=== PATIENT | female | born 1950 | race Caucasian/White ===

== ENCOUNTER → 2018-05-11 | Outpatient (CLI) | payer OTHER ==
[~2018-05-11] MED LIST: ACCUNEB SO1.25 MG/1 INH; ACTOS15 MG PO; ADULT LOW DOSE81 MG PO; ATACAND HCT 321 EACH PO; BENICAR HCT 201 EACH PO; CENTRUM SILVER1 EAC1 PO; ENABLEX15 MG PO; EYE DROPS15 M1 OPHTHALMIC; HYCET 7.5 MG-3473 ML PO; LEVOTHROID125 MCG PO; LIPITOR40 MG PO; MULTIVITAMINS1 EAC7 PO; NORVASC 5 MG TAB5 MG PO; OCUVITE TABLET1 EAC1 PO; OSTEOBIFLEX PO; SPIRONOLACTONE50 MG PO
[2018-05-11 09:34] LABS: CREATININE 1.2 mg/dL (0.6-1.0)
== END ==
LOC: EDSTATUS 08:47 → CAT 08:52
PROVIDERS: Surgery
DX: N28.1 Cyst of kidney, acquired (principal); K57.30 Diverticulosis of large intestine without perforation or abscess without bleeding; K76.89 Other specified diseases of liver; R18.8 Other ascites; Z90.49 Acquired absence of other specified parts of digestive tract; Z90.710 Acquired absence of both cervix and uterus

== ENCOUNTER → 2019-09-05 | Outpatient (CLI) | payer OTHER | LOC: SJCVC 14:53 | PROVIDERS: ATTEND Internal Medicine | DX: I49.9 Cardiac arrhythmia, unspecified (principal); I25.10 Atherosclerotic heart disease of native coronary artery without angina pectoris; E78.00 Pure hypercholesterolemia, unspecified; I10 Essential (primary) hypertension ==

== ENCOUNTER → 2020-01-31 | Outpatient (CLI) | payer OTHER | LOC: SJCVCIMAG 09:07 | PROVIDERS: ATTEND Internal Medicine Cardiovascular Disease | DX: I25.10 Atherosclerotic heart disease of native coronary artery without angina pectoris (principal); I49.3 Ventricular premature depolarization; E78.5 Hyperlipidemia, unspecified; I10 Essential (primary) hypertension; Z79.899 Other long term (current) drug therapy ==

== ENCOUNTER → 2020-11-05 | Outpatient (CLI) | payer OTHER | LOC: SJCVC 12:53 | PROVIDERS: ATTEND Internal Medicine Cardiovascular Disease | DX: I25.10 Atherosclerotic heart disease of native coronary artery without angina pectoris (principal); E78.5 Hyperlipidemia, unspecified; I89.0 Lymphedema, not elsewhere classified; E11.22 Type 2 diabetes mellitus with diabetic chronic kidney disease; I12.9 Hypertensive chronic kidney disease with stage 1 through stage 4 chronic kidney disease, or unspecified chronic kidney disease; N18.9 Chronic kidney disease, unspecified; E78.00 Pure hypercholesterolemia, unspecified; E66.01 Morbid (severe) obesity due to excess calories; G47.33 Obstructive sleep apnea (adult) (pediatric); Z90.710 Acquired absence of both cervix and uterus; Z79.82 Long term (current) use of aspirin; Z79.899 Other long term (current) drug therapy; Z82.49 Family history of ischemic heart disease and other diseases of the circulatory system ==

== ENCOUNTER 2021-01-10 11:23 | Emergency (ER) | payer OTHER ==
[~2021-01-10] VITALS: Ht 157.5 cm; Wt 90.7 kg
[2021-01-10 11:23] VITALS: BP 138/88
[~2021-01-10 11:23] MED LIST changes: -LEVOTHROID125 MCG PO; +LEVOTHYROXINE150 MC1 PO
[2021-01-10] MEDS ORDERED: PREDNISONE50 MG PO (12:31)
[2021-01-10] MEDS ORDERED: NORCO5 PO (12:31)
[2021-01-16] MEDS ORDERED: ALPRAZOLAM XR3 MG PO (12:06)
[2021-01-16] MEDS ORDERED: GABAPENTIN100 MG PO (12:07)
[2021-01-16] MEDS ORDERED: PRAVACHOL40 MG PO (12:07)
[2021-01-16] MEDS ORDERED: PLAVIX 75 MG TA75 MG PO (15:51)
== END 2021-01-10 12:32 | disposition home or self-care (01) ==
LOC: ER 11:23
DX: M25.561 Pain in right knee (principal); J45.909 Unspecified asthma, uncomplicated; I10 Essential (primary) hypertension; E03.9 Hypothyroidism, unspecified; Z90.49 Acquired absence of other specified parts of digestive tract; Z90.89 Acquired absence of other organs; Z88.1 Allergy status to other antibiotic agents; Z90.710 Acquired absence of both cervix and uterus; Z79.2 Long term (current) use of antibiotics; Z79.82 Long term (current) use of aspirin; Z79.899 Other long term (current) drug therapy

== ENCOUNTER → 2021-01-15 | Outpatient (CLI) | payer OTHER ==
[~2021-01-15] MED LIST changes: +ALPRAZOLAM XR3 MG PO; +GABAPENTIN100 MG PO; +NORCO5 PO; +PLAVIX 75 MG TA75 MG PO; +PRAVACHOL40 MG PO; +PREDNISONE50 MG PO
== END ==
LOC: SJCVCIMAG 11:15
PROVIDERS: ATTEND Nuclear Medicine Nuclear Cardiology
DX: M79.89 Other specified soft tissue disorders (principal); M79.605 Pain in left leg; M79.604 Pain in right leg; I87.2 Venous insufficiency (chronic) (peripheral); I25.10 Atherosclerotic heart disease of native coronary artery without angina pectoris; E11.22 Type 2 diabetes mellitus with diabetic chronic kidney disease; I12.9 Hypertensive chronic kidney disease with stage 1 through stage 4 chronic kidney disease, or unspecified chronic kidney disease; N18.9 Chronic kidney disease, unspecified; G47.33 Obstructive sleep apnea (adult) (pediatric); E66.01 Morbid (severe) obesity due to excess calories; Z90.710 Acquired absence of both cervix and uterus; Z98.890 Other specified postprocedural states; Z79.82 Long term (current) use of aspirin; Z79.899 Other long term (current) drug therapy; Z82.49 Family history of ischemic heart disease and other diseases of the circulatory system

== ENCOUNTER → 2021-01-16 | Outpatient (CLI) | payer OTHER ==
[~2021-01-16] VITALS: Ht 157.5 cm; Wt 106.6 kg
[2021-01-16 11:31] VITALS: BP 148/86
[2021-01-16 12:05] LABS: HEMATOCRIT 39.7 % (37.0-47.0); HEMOGLOBIN 12.7 gm/dL (12.0-15.0); MCH 25.6 pg (26.0-34.0); MCHC 32.1 g/dL (28.0-37.0); MCV 79.7 fL (80.0-100.0); RBC 4.98 mil/uL (4.20-5.00); RDW 15.1 % (10.5-14.5); WBC 8.3 thou/uL (4.0-11.0)
[2021-01-16 12:12] LABS: CALCIUM 8.7 mg/dL (8.5-10.1); CREATININE 1.6 mg/dL (0.6-1.0)
== END | disposition home or self-care (01) ==
LOC: CATH 06:23
PROVIDERS: ATTEND Nuclear Medicine Nuclear Cardiology
DX: I87.1 Compression of vein (principal); I87.323 Chronic venous hypertension (idiopathic) with inflammation of bilateral lower extremity; R22.43 Localized swelling, mass and lump, lower limb, bilateral; I13.0 Hypertensive heart and chronic kidney disease with heart failure and stage 1 through stage 4 chronic kidney disease, or unspecified chronic kidney disease; E11.22 Type 2 diabetes mellitus with diabetic chronic kidney disease; N18.9 Chronic kidney disease, unspecified; M79.604 Pain in right leg; M79.605 Pain in left leg; I50.9 Heart failure, unspecified; E03.9 Hypothyroidism, unspecified; E78.5 Hyperlipidemia, unspecified; E78.00 Pure hypercholesterolemia, unspecified; J45.909 Unspecified asthma, uncomplicated; E66.9 Obesity, unspecified; K21.9 Gastro-esophageal reflux disease without esophagitis; Z98.890 Other specified postprocedural states; Z79.899 Other long term (current) drug therapy; Z79.01 Long term (current) use of anticoagulants; Z90.49 Acquired absence of other specified parts of digestive tract; Z82.49 Family history of ischemic heart disease and other diseases of the circulatory system

== ENCOUNTER → 2021-06-04 | Outpatient (CLI) | payer OTHER | LOC: SJCVCIMAG 13:12 | PROVIDERS: ATTEND Nuclear Medicine Nuclear Cardiology | DX: I87.1 Compression of vein (principal); I87.2 Venous insufficiency (chronic) (peripheral); I25.10 Atherosclerotic heart disease of native coronary artery without angina pectoris; M79.89 Other specified soft tissue disorders; I89.0 Lymphedema, not elsewhere classified; I12.9 Hypertensive chronic kidney disease with stage 1 through stage 4 chronic kidney disease, or unspecified chronic kidney disease; E11.22 Type 2 diabetes mellitus with diabetic chronic kidney disease; N18.9 Chronic kidney disease, unspecified; E78.00 Pure hypercholesterolemia, unspecified; E66.09 Other obesity due to excess calories; G47.30 Sleep apnea, unspecified; Z88.8 Allergy status to other drugs, medicaments and biological substances; Z79.82 Long term (current) use of aspirin; Z79.899 Other long term (current) drug therapy ==

== ENCOUNTER 2021-06-12 09:22 | Observation (INO) | payer OTHER ==
[2021-06-12] VITALS (7 sets, daily range): BP systolic 121–150; BP diastolic 58–93
[~2021-06-12] VITALS: Ht 157.5 cm; Wt 120.8 kg
--- NOTE | ~2021-06-12 | O ---
[facility] [place] [address] OPERATIVE REPORT Name: IRAIDA LOPEZ Room #: 150-5 ADM IN M.R.#: [id number] Admission: 06/12/21 Attend Phys: Elma Martinez MD, Discharge: Date of : 46 Report #: [id number] THIS REPORT FOR: cc: Arlyn Waldron,Arlyn Li,Elma Escalante MD FACS ~ DATE OF SERVICE: 06/12/2021 PREOPERATIVE DIAGNOSES: 1. Morbid obesity. 2. History of previous laparoscopic adjustable gastric banding with subsequent removal. POSTOPERATIVE DIAGNOSES: 1. Morbid obesity. 2. History of previous laparoscopic adjustable gastric banding with subsequent removal. 3. Hiatal hernia. PROCEDURES PERFORMED: 1. Laparoscopic sleeve gastrectomy. 2. Laparoscopic primary suture repair of the hiatal hernia. 3. Thorough esophagogastroduodenoscopy (EGD). SURGEON: Elma Martinez MD CONSUMER ELECTRONICS MERCHANDISER: JHOAN Hernandez ANESTHESIA: General endotracheal anesthesia. ESTIMATED BLOOD LOSS: Minimal (less than 5 mL). COMPLICATIONS: None appreciated. SPECIMENS: Gastric sleeve resection specimen to pathology. INDICATIONS: The patient is a 70-year-old morbidly obese female who has been seen for a desire for weight loss surgery, as she has had a very long history of obesity and has tried numerous weight loss attempts, all to no avail. The patient has previously undergone placement of a lap band with subsequent removal secondary to dysphagia and inadequate weight loss. The patient has been seen by a psychologist and novelty balloon assembler and packer and her primary care physician as well as following with me for several months, doing aggressive diet and exercise attempts to where all have cleared her for bariatric surgery as well as indicating it is medically necessary for long-term weight loss and assistance with resolution of her comorbid conditions. The assistance of my nurse [facility] [address] [place] [address] OPERATIVE REPORT Name: IRAIDA LOPEZ Room #: 150-5 ADM IN M.R.#: [id number] Admission: 06/12/21 Attend Phys: Elma Martinez MD, Discharge: Date of : 46 Report #: [id number] practitioner was imperative to the safe and successful completion of the procedure, as she performed excellent retraction, exposure and suctioning at a level well above that of a surgical services tech. PROCEDURE IN DETAIL: After explaining the risks, benefits and alternatives of the procedure with the patient in detail in the preoperative holding area and obtaining consent, the patient was brought to the operating room and placed supine on the operating room table. After conducting a thorough timeout procedure, verifying correct patient and procedure, the patient was given general endotracheal anesthesia. Once adequate anesthesia was obtained, her SCDs were hooked up to pneumatic compression device and she was given a preoperative dose of antibiotics in line with the SCIP protocol. The patient's abdomen was now prepped and draped in a standard surgical sterile fashion after positioning her in the low lithotomy position with her legs in the Yellofin stirrups. I began the procedure performing a thorough EGD. The Fujinon upper endoscope was used to intubate the oropharynx, was traversed down to the third portion of the duodenum. Slow careful withdrawal of the scope showed no evidence of duodenitis, gastritis, esophagitis, mass lesions or ulcerations. A retroflexion view of the scope within the gastric lumen showed questionable evidence of a small hiatal hernia. The scope was straightened out with its tip at the level of pylorus where the stomach was fully desufflated and the scope was taped into position. After sterilely scrubbing and entering the operative field, 5 mL of 0.5% Marcaine with epinephrine were used to anesthetize the skin 2 cm cephalad to the umbilicus and 1 cm to the patient's left. A #15 bladed scalpel was used to create a small skin albaro at this location. A 5 mm Visiport was placed over 0-degree, 5 mm laparoscope and was introduced through this incision site. Once intraabdominal placement was verified visually, the obturator for the trocar and laparoscope were both removed and the abdomen was insufflated to 15 mmHg using carbon dioxide gas. The laparoscope was changed to a 5 mm, 30-degree laparoscope, which was reintroduced through this trocar. The entire abdomen was evaluated to ensure no injury upon entry. I now placed 3 additional working trocars, the first a 15 mm port 5 cm cephalad of the umbilicus and 5 cm to the patient's right, the second one a 5 mm port in the left mid-abdomen at the midclavicular line, 5 cm lateral to my initially placed port, and an additional 5 mm port was placed in extreme left lateral flank. All three additional ports were placed under direct vision after anesthetizing the skin at each location with 5 mL of 0.5% Marcaine with epinephrine. I created appropriately sized skin nicks using #15 bladed scalpel. The patient was now placed in steep reverse Trendelenburg position. I placed a Shirlene liver retractor in the subxiphoid location, where it was positioned up under the left lobe of the liver and held up against the posterior aspect of the anterior abdominal wall and fixed into position using the iron internal combustion engine subassembler device to stabilize it. We now had complete access to the stomach and hiatal regions and saw evidence of a small hiatal hernia. The left midabdominal 5 mm port was now upsized to a 12 mm port under direct vision. I now started my dissection. [facility] [address] [place] [address] OPERATIVE REPORT Name: IRAIDA LOPEZ Room #: 150-5 ADM IN M.R.#: [id number] Admission: 06/12/21 Attend Phys: Elma Martinez MD, Discharge: Date of : 46 Report #: [id number] The vein of Valente was identified overlying the pylorus. I measured 6 cm proximal to this and started taking down the short gastric arteries from this location, all the way up the greater curvature of the stomach using Harmonic scalpel for hemostasis. Once I arrived upon the left brooke, I dissected anteriorly up the left brooke and was able to deliver the superior portion of the stomach back into the abdomen. We then opened the pars flaccida where there were some adhesions from the previous Lap-Band and we were able to find the right brooke and dissected anteriorly up the right brooke in similar fashion. I now was able to deliver approximately 3 cm of esophagus into the abdomen that was not under traction to attempt to recoil in the mediastinum and turned our attention to repair of the small hiatal hernia. Two sutures of 0 Surgidac on the EndoStitch device were used to reapproximate the crural pillars anteriorly without undue tension on the esophageal tissues themselves. The stomach was now elevated anteriorly and we were able to take down all posterior gastric attachments ensuring that we stayed well away from the gastric wall to prevent injury from thermal burn. Now that we had fully mobilized the stomach and repaired the hiatal defect, we started the stapling portion of the procedure. The EGD scope was positioned to run along the lesser curvature of the stomach and the OG tube was removed. I used the Lucky 60 mm stapler with a black load using Shi's Lisa-Strip buttressing material to start the firing 6 cm proximal to pylorus. This was fired right along the scope, ensuring that we were not too tight at the incisura to prevent stricturing. Another firing of an additional black load again using Shi's Lisa-Strip buttressing material was carried out following the scope as a 34-Amharic bougie. Five additional firings of green loads all utilizing Shi's Lisa-Strip buttressing material was carried out following the scope as a bougie all the way up to the left brooke until the stomach was completely transected. This left an excellently oriented sleeve of gastric remnant that was not twisted or apparently strictured. The resection specimen was placed in the right upper quadrant for future retrieval. We now used 10 mL of Tisseel on the deep low spray device to coat the entirety of the staple line with fibrin glue. Photodocumentation of all the above was taken and provided to the patient and the permanent medical record. Hemostasis was assured. I now removed the resection specimen via the 15 mm fascial incision under direct vision and then placed 0 PDS sutures in both the 15 and 12 mm fascial incisions, which were tied down under direct vision to ensure I did not catch a loop of bowel or omentum in the suture repair. I reactivated the EGD scope and slowly withdrew it, evaluating the sleeved stomach, both endoluminally as well as laparoscopically to ensure no bleeding or bubbling in the Tisseel that would indicate a leak. We had complete hemostasis and no evidence of leakage. The scope was then removed via the oropharynx and passed off the field. The Shirlene liver retractor was removed and the liver was uninjured. The abdomen was fully desufflated. All trocars were removed under direct vision. A 4-0 Monocryl was used in a standard [facility] [address] [place] [address] OPERATIVE REPORT Name: IRAIDA LOPEZ Room #: 150-5 ADM IN .R.#: [id number] Admission: 06/12/21 Attend Phys: Elma Martinez MD, Discharge: Date of : 46 Report #: [id number] subcuticular fashion for all skin incisions and Dermabond glue was applied to the skin wounds. The corner of the resection specimen was trimmed away and normal saline was passively instilled into the resection specimen yielding 1100 mL of normal saline in the resection specimen itself. At the end of the procedure, all instrument, needle and sponge counts were correct. The patient tolerated the procedure without incident, was awakened in the operating room and transitioned to the recovery room in a stable condition with no apparent complications. By: 1312 1407 Elma Martinez MD, FACS /nt
[~2021-06-12 09:22] MED LIST changes: +ALPRAZOLAM 0.50.5 M1 PO; +LEVOTHYROXINE100 MCG PO; +NORCO 10-325 T1 EACH PO; +OLMESARTAN-HCT1 EACH PO; +TUMS ULTRA400 MG PO
--- NOTE | 2021-06-12 12:19 | EKG ---
[place] [address] [facility] [employer] [place] [address] ELECTROCARDIOGRAM REPORT Name: IRAIDA LOPEZ Room #: [facility].#: [id number] Admission: 06/12/21 Attend Phys: Elma Martinez MD, Discharge: Date of : 46 Report #: [id number] [facility] Test Date: 2021-06-12 Test Time: 10:48:02 Pat Name: IRAIDA LOPEZ Department: Room: Gender: F Merchandising Internship: BART : 1950 Requested By: Elma Martinez Order Number: [id number] : Ti Davidson Measurements Intervals [place] Rate: 64 P: 34 NV: 220 QRS: 14 QRSD: 101 T: 66 QT: 421 QTc: 435 Interpretive Statements Sinus rhythm Prolonged NV interval Compared to ECG 05/14/2016 06:41:02 First degree AV block now present Atrial premature complex(es) no longer present Electronically Signed On 06-12-2021 12:19:45 RESTAURANT MANAGER by Ti Davidson [email or web address] <ELECTRONICALLY SIGNED> By: Ti Davidson MD, [facility] 06/12/21 1219 1048 1048 Ti Davidson MD, FACC /EPI
[2021-06-12] MEDS ORDERED: NEURONTIN 300M300 M2 PO (14:02)
[2021-06-12] MEDS ORDERED: HYDROCODONE-ACE15 ML PO (14:02)
[2021-06-12] MEDS ORDERED: ZOFRAN ODT4 MG DISSOLVE (14:02)
--- NOTE | 2021-06-12 16:22 | NUR ---
ASSUMED CARE OF PT AT 1545 THIAS AFTERNOON FROM PACU. PT HAD GASTRIC SLEEVE PLACED. PT WILL RESPOND TO VOICE AND STATES SHE IS IN PAIN BUT HAD PAIN RX JUST PRIOR TO ARRIVAL. 3 LAP SITES WITH DERMABOND ON ABD AND UMBILICUS. RN WILL COMPLETE SYSTEMS ASSESSMENT AND CARE PLAN. MEDS AND TX GIVEN NEEDED AND SCHEDULED. FALL [PRECAUTIONS IN PLACE. CALL LIGHT AND OTHER NEEDS ARE IN REACH. WILL MONITOR AND NOTE ANY CHANGES.
[2021-06-13 03:54] LABS: CALCIUM 8.7 mg/dL (8.5-10.1); CREATININE 1.4 mg/dL (0.6-1.0); POTASSIUM 5.1 mmol/L (3.5-5.1)
[2021-06-13 04:14] LABS: HEMATOCRIT 37.1 % (37.0-47.0); HEMOGLOBIN 11.5 gm/dL (12.0-15.0); MCH 25.9 pg (26.0-34.0); MCV 83.5 fL (80.0-100.0); RBC 4.44 mil/uL (4.20-5.00); RDW 15.1 % (10.5-14.5); WBC 7.8 thou/uL (4.0-11.0)
--- NOTE | 2021-06-13 05:06 | NUR ---
NO ACUTE EVENTS TIS SHIFT. PT HAS RESTED IN BED THIS SHIFT. IV INFUSING PER ORDERS. PAIN MEDS PROVIDED NEEDED. PT UP TO BSC X1 THIS SHIFT WITHOUT INCIDENT. PT IS OPTOMISTIC ABOUT RECOVERY AND LOOKING FORWARD TO HER DIET/SPEECH EVAL TODAY
[2021-06-13 08:11] VITALS: BP 100/45
[2021-06-13 11:24] VITALS: BP 100/45
--- NOTE | 2021-06-13 12:43 | NUR ---
ASSUMED CARE OF PT AT 0700. GIVEN PAIN MEDS AND ZOFRAN FOR NAUSEA. PT WAS ABLE TO SWALLOW CLEAR LIQUID DIET WITHOUT ANY ISSUES. AMBULATED TO BATHROOM, HAD BOWEL MOVEMENT. SPOKE WITH NURSE PRACTITIONER AND GAVE OK FOR PT TO DISCHARGE.
--- NOTE | 2021-06-18 14:07 | PATH ---
[facility] [place] [address] [address] PATHOLOGY RPT PROCEDURE Name: IRAIDA LOPEZ Room #: 437-P BRAIN [place]#: [id number] Admission: 06/12/21 Date of : 46 Discharge: 06/13/21 Report #: [id number] Path Case #: [id number] [facility] Accession Number: [id number] . 01 Material submitted: . stomach - PORTION OF STOMACH GASTRIC SLEEVE . 01 Clinical history: . LAPAROSCOPIC SLEEVE GASTRECTOMY EGD IN OR MORBID OBESITY . 02 Diagnosis: Stomach (partial gastropathy): - Mild chronic gastritis, slight activity, negative for dysplasia, negative for intestinal metaplasia, negative for Helicobacter-like organisms. (GEETHA:mikayla; 06/16/2021) MBShawna 06/16/2021 1743 Local . 02 Comment: These were removed in the course of surgery for morbid obesity. (GEETHA:mental health orderly; 06/16/2021) . 02 Electronically signed: . Bryon Dickson MD, Pathologist NPI- [id number] . 01 Gross description: . Fixative: Formalin Labeled: Portion of stomach, gastric sleeve Specimen received: Partial gastrectomy with a stapled margin of resection Dimensions: 22.3 x 4.8 x 3.0 cm Serosa: Mcfarland-gabriel, smooth to slightly ragged Mucosa: Light liriano with normal rugal folds Abnormalities: A possible pale liriano polyp is identified measuring 1.0 cm Submitted representatively in cassette A1, to include the possible polyp. (CAA; 06/13/2021) QAC/QAC 06/13/2021 1156 Local . 02 Pathologist provided ICD-10: K29.50 . 02 CPT . 399773 Specimen Comment: A courtesy copy of this report has been sent to [phone] [address] PATHOLOGY RPT PROCEDURE Name: IRAIDA LOPEZ Room #: 437-P [facility] [place]#: [id number] Admission: 06/12/21 Date of : 46 Discharge: 06/13/21 Report #: [id number] Path Case #: [id number] Specimen Comment: 2034 Specimen Comment: Report sent to / DR WHALEN Specimen Comment: A duplicate report has been generated due to demographic updates. Performed at: 01 [facility] [address] [id number] MD Jayme Ruiz MD Phone: [phone] Performed at: [address] [id number] MD Bryon Dickson MD Phone: [phone]
== END 2021-06-13 12:51 | disposition home or self-care (01) ==
LOC: OR 09:22 → 4S 09:23 → TBA 09:23 → OR 10:21 → 4S 15:34
PROVIDERS: Registered Nurse; ADMIT Surgery; ATTEND Surgery
DX: E66.01 Morbid (severe) obesity due to excess calories (principal); Z20.822 Contact with and (suspected) exposure to COVID-19; K44.9 Diaphragmatic hernia without obstruction or gangrene; Z79.82 Long term (current) use of aspirin; Z79.899 Other long term (current) drug therapy; Z68.42 Body mass index [BMI] 45.0-49.9, adult
CPT/HCPCS: 50010; 50101; 50222; 50386; 50555; 50558; 51437; 52182; 52205; 52265; 53307; 53311; 54022; 54118; 55326; 56462; 56525; 56526; 56531; 57092; 58574; 58869; 58870; 58871; 62110; 62900; 70005

== ENCOUNTER → 2021-07-21 | Outpatient (CLI) | payer OTHER ==
[~2021-07-21] VITALS: Ht 157.5 cm; Wt 108.9 kg
[~2021-07-21] MED LIST changes: +ASPIRIN EC325 M1 PO; +HYDROCODONE-ACE15 ML PO; +NEURONTIN 300M300 M2 PO; +XANAX2 MG PO; +ZOFRAN ODT4 MG DISSOLVE
[2021-07-21 07:30] VITALS: BP 124/57
[2021-07-21 07:48] LABS: HEMATOCRIT 37.1 % (37.0-47.0); HEMOGLOBIN 11.9 gm/dL (12.0-15.0); MCH 25.5 pg (26.0-34.0); MCV 79.6 fL (80.0-100.0); RBC 4.66 mil/uL (4.20-5.00); RDW 15.2 % (10.5-14.5); WBC 4.4 thou/uL (4.0-11.0)
[2021-07-21 07:50] LABS: CALCIUM 9.2 mg/dL (8.5-10.1); CREATININE 1.4 mg/dL (0.6-1.0)
[2021-07-21 07:53] LABS: POTASSIUM 4.3 mmol/L (3.5-5.1)
--- NOTE | 2021-07-21 10:41 | NUR ---
PTS GRANDDAUGHTER CALLED AND UPDATED ON ETA OF PT DISCHARGE.
--- NOTE | 2021-07-21 11:50 | NUR ---
LATE ENTRY. 10MG DIAZEPAM GIVEN PO PRIOR TO PROCEDURE AND SALINE STARTED 75ML/HR
--- NOTE | 2021-07-21 12:07 | NUR ---
PTS DAUGHTE WAS HERE AND LEFT TO GET PTS RX HYDROCODONE. PT AND PTS DAUGHTER ADVISED TO WAIT IF POSSIBLE TO TAKE MED DUE TO NAUSEA. PT SELF DRESSED AND IV DCD. PT A/OX3 WITH C/O BACK PAIN ONLY ON DC AND NO NAUSEA. PT RELATES BACK PAIN TO PREVIOUS BACK PAIN AND NO CHANGE IN LOCATION. PAIN NOTED IN LOWER SPINE REGION ONLY WITH NO RADIATION TO EITHER FLANK.
== END | disposition home or self-care (01) ==
LOC: CATH 06:38
PROVIDERS: ATTEND Nuclear Medicine Nuclear Cardiology
DX: I87.1 Compression of vein (principal); T82.856A Stenosis of peripheral vascular stent, initial encounter; I87.323 Chronic venous hypertension (idiopathic) with inflammation of bilateral lower extremity; R22.43 Localized swelling, mass and lump, lower limb, bilateral; I13.0 Hypertensive heart and chronic kidney disease with heart failure and stage 1 through stage 4 chronic kidney disease, or unspecified chronic kidney disease; E11.22 Type 2 diabetes mellitus with diabetic chronic kidney disease; N18.9 Chronic kidney disease, unspecified; I50.9 Heart failure, unspecified; E78.00 Pure hypercholesterolemia, unspecified; I25.10 Atherosclerotic heart disease of native coronary artery without angina pectoris; J45.909 Unspecified asthma, uncomplicated; G47.30 Sleep apnea, unspecified; I73.9 Peripheral vascular disease, unspecified; E66.9 Obesity, unspecified; Z98.890 Other specified postprocedural states; Z79.899 Other long term (current) drug therapy; Z82.49 Family history of ischemic heart disease and other diseases of the circulatory system; Z88.8 Allergy status to other drugs, medicaments and biological substances; Y83.8 Other surgical procedures as the cause of abnormal reaction of the patient, or of later complication, without mention of misadventure at the time of the procedure